=== PATIENT | male | born 1940 | race Caucasian/White ===

== ENCOUNTER 2017-04-14 20:38 | Inpatient (IN) | payer OTHER ==
[~2017-04-14] VITALS: Ht 180.3 cm; Wt 80.7 kg
[~2017-04-14 20:38] MED LIST: ADALAT CC30 MG PO; ADV250/50 INH; ALEVE220 MG PO; ALLOPURINOL100 MG PO; ASPI-COR81 M3 PO; ASPIR 8181 MG PO; BACTRIM1 TAB PO; BAYER ASPIRIN R81 MG PO; BENADRYL ALLERG25 M1 PO; CARVEDILOL3.125 M1 PO; COR3 PO; EPIPEN 2-PAK1 MG/ML IM; FAMOTIDINE20 MG PO; FENOFIBRATE145 M1 PO; HYDROCHLOROTH12.5 MG PO; IPRATROPIUM BROM3 M2 HHN; KEFLEX500 MG PO; L40I IV; LAC PO; LASIX20 MG PO; LEVAQUIN750 MG PO; LEVOTHYROXINE PO; LEVOXYL0.088 MG PO; MASON NATURAL1000 IU PO; MEDDP PO; NIFEDICAL XL30 MG PO; PEPCID20 MG PO; PRINIVIL20 MG PO; PROAIR HFA0.09 MG/A1 INH; PROBIOTIC FORMU1 CA1 PO; QVAR0.04 MG/Ac IH; ROCALTROL0.25 MCG PO; SIMVASTATIN40 M1 PO; TERAZOSIN HCL2 MG PO; TERAZOSIN1 MG PO; ZOCOR20 MG PO
[2017-04-14 21:58] LABS: BASOPHIL % 0.7 % (0-2); PLATELET COUNT 135 x10^3mcL (130-400)
[2017-04-14 22:00] LABS: RED CELL DISTRIBUTION WIDTH 16.7 % (11.5-14.5)
[2017-04-14 22:07] LABS: CALCIUM 8.5 mg/dL (8.5-10.1); CARBON DIOXIDE 33.6 mmol/L (21-32); CHLORIDE SERUM 100 mmol/L (98-107); CREATININE SERUM 2.8 mg/dL (0.7-1.3); GLUCOSE SERUM 137 mg/dL (74-106); POTASSIUM SERUM 3.9 mmol/L (3.5-5.1); SODIUM SERUM 140 mmol/L (136-145)
[2017-04-14 22:12] LABS: ALKALINE PHOSPHATASE 194 U/L (46-116); ALT/SGPT 15 U/L (16-63); AST/SGOT 15 U/L (15-37); BILIRUBIN TOTAL 1.6 mg/dL (0.20-1.00); TOTAL PROTEIN, SERUM 6.9 g/dL (6.4-8.2)
[2017-04-14 22:13] LABS: ALBUMIN 3.1 g/dL (3.4-5.0)
[2017-04-14] MEDS ORDERED: MASON NATURAL1000 IU (22:20)
[2017-04-14] MEDS ORDERED: SIMVASTATIN10 M1 PO (22:21)
[2017-04-14] MEDS ORDERED: RESTORIL15 MG PO (22:21)
[2017-04-14] MEDS ORDERED: TERAZOSIN HCL2 MG PO (22:21)
[2017-04-14] MEDS ORDERED: ALLOPURINOL100 MG PO (22:22)
[2017-04-14] MEDS ORDERED: LASIX80 MG PO (22:22)
[2017-04-14] MEDS ORDERED: MIDODRINE HCL10 MG PO (22:23)
[2017-04-14] MEDS ORDERED: ASPIR 8181 MG PO (22:24)
[2017-04-14] MEDS ORDERED: TIROSINT100 MC1 PO (22:24)
[2017-04-14] MEDS ORDERED: METOLAZONE10 M1 PO (22:24)
[2017-04-14 23:35] VITALS: BP 110/65
[2017-04-14 23:40] LABS: MAGNESIUM 2.1 mg/dL (1.8-2.4); PHOSPHOROUS 4.1 mg/dL (2.5-4.9)
[2017-04-14 23:45] LABS: CHOLESTEROL/HDL RATIO 2.6
[2017-04-15 00:07] LABS: T3 TOTAL 0.55 ng/mL
[2017-04-15 00:16] LABS: FREE T4 1.04 ng/dL (0.76-1.46); T4(THYROXINE) 7.5 ug/dL (4.7-13.3)
[2017-04-15 04:56] VITALS: BP 110/65
[2017-04-15 05:53] VITALS: BP 118/70
[2017-04-15 07:27] LABS: IRON 72 ug/dL (65-170)
[2017-04-15 07:28] LABS: MAGNESIUM 2.2 mg/dL (1.8-2.4); PHOSPHOROUS 4.7 mg/dL (2.5-4.9)
[2017-04-15 07:33] LABS: TOTAL IRON BINDING CAPACITY 241 ug/dL (250-450)
[2017-04-15 10:18] LABS: RED BLOOD CELLS 3.57 M/mm3 (4.52-5.90)
[2017-04-15 16:52] LABS: UA SPECIFIC GRAVITY 1.025 (1.005-1.035); microscopic required? YES; urine erythrocyte 2+ (NEGATIVE)
[2017-04-15 21:36] VITALS: BP 103/56
[2017-04-16 06:01] VITALS: BP 106/60
[2017-04-16 06:04] LABS: BASOPHIL % 0.4 % (0-2)
[2017-04-16 06:21] LABS: CALCIUM 8.6 mg/dL (8.5-10.1); CARBON DIOXIDE 29.1 mmol/L (21-32); CHLORIDE SERUM 98 mmol/L (98-107); CREATININE SERUM 3.9 mg/dL (0.7-1.3); GLUCOSE SERUM 103 mg/dL (74-106); POTASSIUM SERUM 3.8 mmol/L (3.5-5.1); SODIUM SERUM 136 mmol/L (136-145)
[2017-04-16 06:39] LABS: PLATELET COUNT 125 x10^3mcL (130-400); RED CELL DISTRIBUTION WIDTH 16.3 % (11.5-14.5)
[2017-04-16 08:59] VITALS: BP 104/56
[2017-04-16] MEDS ORDERED: LEVAQUIN750 MG PO (09:06)
[2017-04-16] MEDS ORDERED: LAC PO (09:07)
[2017-04-16 12:08] VITALS: BP 103/56
[2017-04-16 16:24] VITALS: BP 112/67
== END 2017-04-16 17:02 | disposition home or self-care (01) | DRG 73 ==
LOC: ED 20:38 → DU 22:25
PROVIDERS: Emergency Medicine Emergency Medical Services; ADMIT Family Medicine
DX: G90.9 Disorder of the autonomic nervous system, unspecified (principal); N17.0 Acute kidney failure with tubular necrosis; N18.6 End stage renal disease; I50.43 Acute on chronic combined systolic (congestive) and diastolic (congestive) heart failure; I47.2 Ventricular tachycardia; I13.2 Hypertensive heart and chronic kidney disease with heart failure and with stage 5 chronic kidney disease, or end stage renal disease; E44.0 Moderate protein-calorie malnutrition; D68.69 Other thrombophilia; I42.0 Dilated cardiomyopathy; E11.21 Type 2 diabetes mellitus with diabetic nephropathy; E11.51 Type 2 diabetes mellitus with diabetic peripheral angiopathy without gangrene; K80.20 Calculus of gallbladder without cholecystitis without obstruction; I65.23 Occlusion and stenosis of bilateral carotid arteries; E03.9 Hypothyroidism, unspecified; J44.9 Chronic obstructive pulmonary disease, unspecified; N40.0 Benign prostatic hyperplasia without lower urinary tract symptoms; D63.1 Anemia in chronic kidney disease; E78.5 Hyperlipidemia, unspecified; R74.0 Nonspecific elevation of levels of transaminase and lactic acid dehydrogenase [LDH]; Z99.2 Dependence on renal dialysis; Z79.4 Long term (current) use of insulin; F17.210 Nicotine dependence, cigarettes, uncomplicated; Z95.810 Presence of automatic (implantable) cardiac defibrillator
CPT/HCPCS: 78598; 82962; 83880; 84439; 85378; 94150; A9540; J1956; J2270; J7613; J7620; Q0092